=== PATIENT | male | born 1965 | race Caucasian/White ===

== ENCOUNTER → 2019-03-13 | Outpatient (CLI) | payer BC, OTHER ==
[~2019-03-13] MED LIST: PROHANCE 279.3MG/ML 15ML VIAL (A9576) As Ordered ONE; PROHANCE 279.3MG/ML 5ML VIAL (A9576) As Ordered ONE
--- NOTE | 2019-03-13 13:18 | REPVR ---
PROCEDURE INFORMATION: Exam: MR Head Without and With Contrast; Internal Auditory Canals Exam date and time: 03/13/2019 10:54 AM Age: 53 years old Clinical indication: Other: Hearing loss; Additional info: Hearing loss right ear TECHNIQUE: Imaging protocol: MR of the head without and with intravenous contrast. Exam focused on the internal auditory canals. 3D rendering: MIP and/or 3D reconstructed images were created by the technologist. Contrast material: PROHANCE; Contrast volume: 19 ml; Contrast route: IV; COMPARISON: No relevant prior studies available. FINDINGS: Brain: There is no acute intracranial hemorrhage, cerebral edema, or midline shift. No restricted diffusion is present to suggest acute infarction. 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 Mastoid air cells: Unremarkable. No effusions. Internal auditory canals: The bilateral inner ear structures appear unremarkable. The internal auditory canals are within normal limits. The bilateral seventh and eighth nerves are unremarkable. No cerebellopontine angle mass is present. Bones/joints: Unremarkable. IMPRESSION: No acute abnormality. Electronically signed by: Kwan Davila On 03/13/2019 13:17:32 PM
== END ==
LOC: M RAD 09:05
PROVIDERS: ATTEND Otolaryngology
DX: H90.41 Sensorineural hearing loss, unilateral, right ear, with unrestricted hearing on the contralateral side (principal)
CPT/HCPCS: 70553; A9576

== ENCOUNTER → 2019-10-17 | Outpatient (CLI) | payer BC, OTHER ==
[2019-10-18 21:07] LABS: PSA TOTAL 3.3 ng/mL (0.0-4.0)
== END ==
LOC: M LAB 10:15
PROVIDERS: ATTEND Specialist
DX: R97.20 Elevated prostate specific antigen [PSA] (principal)